=== PATIENT | female | born 1985 | race Caucasian/White ===

== ENCOUNTER 2024-06-26 21:51 | Inpatient (IN) | payer OTHER, SELFPAY ==
--- NOTE | ~2024-06-26 | US_ITS ---
EXAMINATION: US RETROPERITONEAL LIMITED (RENAL ONLY) CLINICAL INFORMATION: Bilateral, ureteral stone.. COMPARISON: None available. Correlation made with CT abdomen and pelvis 06/26/2024. TECHNIQUE: Real-time imaging of the kidneys. FINDINGS: RIGHT KIDNEY: 11.6 x 5.4 x 5.9 cm (SAG x AP x TRV). The kidney is normal in size, contour, and echogenicity. Renal cortical thickness is normal. Mild pelvic fullness is present. 3 mm mid pole calcification. LEFT KIDNEY: 11.6 x 6.7 x 6.3 cm (SAG x AP x TRV). The kidney is normal in size, contour, and echogenicity. Renal cortical thickness is normal. No calculi or focal parenchymal lesions. No hydronephrosis. US/US renal BI IMPRESSION: 1. Mild right renal pelvic fullness without gross hydronephrosis. 2. 3 mm mid pole calculus right kidney. 3. Normal left kidney.. Electronically signed by: Angel Swan MD 06/28/2024 04:06 PM EDT
--- NOTE | ~2024-06-26 | CT_ITS ---
CLINICAL HISTORY: Fever, RT flank pain, ? pyelo, hx of stones CT abdomen and pelvis with contrast Comparison: None Findings: The lung bases are clear. Hepatomegaly measuring 23.8 cm in the craniocaudal dimension. There is a small accessory splenule. Gallbladder, pancreas, and adrenal glands are within normal limits. 3 mm calculus in the proximal right ureter without hydronephrosis. Right perinephric stranding and areas of parenchymal hypoenhancement consistent with pyelonephritis. Nonobstructing calculus in the lower pole of the left kidney. No bowel obstruction, pneumoperitoneum, or pneumatosis. Normal appendix. Small fat containing umbilical hernia. Urinary bladder is underdistended. Uterus is within normal limits. No acute fracture. IMPRESSION: 1. Right pyelonephritis with 3 mm proximal ureteral calculus. 2. Hepatomegaly measuring 23.8 cm craniocaudal. This document has been electronically signed by: Spencer Godinez MD on 06/27/2024 00:03:32
[2024-06-26 21:57] VITALS: BP 140/77; PULSE 110; RESP 18; TEMP 39.5; O2SAT 98; BMI 40.2
[2024-06-26 22:27] LABS: MANUAL DIFF FLAG NO
[2024-06-26 22:28] LABS: Basophils Percent Auto 0.1 % (0-2); Eosinophils Absolute Auto 0.1 X10*3/uL (0.0-0.4); Eosinophils Percent Auto 0.5 % (0-4); Hematocrit 34.2 % (37.0-47.0); Hemoglobin 11.8 g/dl (12.0-16.0); Imm Gran Abs Auto 0.03 X10*3/uL (0.00-0.03); Imm Gran Pct Auto 0.3 % (0.0-0.4); Lymphocytes Absolute Auto 1.3 X10*3/uL (1.2-4.9); Lymphocytes Percent Auto 13.2 % (20-40); Mean Corpuscular HGB Conc 34.5 g/dl (31.0-35.0); Mean Corpuscular Hemoglobin 29.5 pg (27.0-33.0); Mean Corpuscular Volume 85.5 fL (80.0-98.0); Mean Platelet Volume 8.4 fL (9.4-12.3); Monocytes Absolute Auto 0.8 X10*3/uL (0.1-1.2); Neutrophils Absolute Auto 7.6 x10*3/uL (2.0-8.3); Neutrophils Percent Auto 77.9 % (45-73); Platelet Count 339 X10*3/uL (160-400); Red Cell Distribution Width 12.3 % (11.0-16.0); White Blood Count 9.7 X10*3/uL (4.8-10.8)
[2024-06-26 22:42] LABS: Lactic Acid 1.2 mmol/L (0.5-2.0)
[2024-06-26 22:45] LABS: Alanine Aminotransferase 58 U/L (0-31); Alkaline Phosphatase 78 U/L (39-117); Anion Gap 15 (12-20); Aspartate Amino Transferase 41 U/L (5-31); Bilirubin Total 0.6 mg/dL (0.0-1.0); Blood Urea Nitrogen 9 mg/dL (9-16); Calcium 9.2 mg/dL (8.4-10.2); Carbon Dioxide 21 mmol/L (22-29); Chloride 105 mmol/L (96-108); Creatinine Clr Calc Pharmacy 109.1; Estimated Glomerular Filt Rate > 60; Glucose Random 106 mg/dL (60-115); Potassium 3.7 mmol/L (3.3-5.1); Sodium 137 mmol/L (135-145); Total Protein 7.5 g/dL (6.5-8.0)
[2024-06-26 22:51] LABS: Appearance Urine Clear; Color Urine Yellow; Glucose Urine UA Negative (Negative); Leukocyte Esterase Urine Moderate (2+) (Negative); Nitrite Urine Negative (Negative); PH 5.5 (5.0-9.0); UMIC TRIGGER UACC YES; Urine Blood Large (3+) (Negative); Urine Ketones Negative (Negative); Urine Protein 30 (1+) mg/dL (Neg-Trace)
[2024-06-26 22:53] LABS: UPreg QC Valid YES; Urine Pregnancy NEGATIVE (NEGATIVE)
[2024-06-26 22:56] LABS: Bacteria Urine Trace (None Seen); Hyaline Casts Urine 0-2 /LPF (0-2); RBC Urine >20 /HPF (0-2); UACC Culture Trigger YES; WBC Urine 21-50 /HPF (0-5)
--- NOTE | 2024-06-26 22:56 | ED_ITS ---
HPI - General Adult General Chief complaint: Fever Stated complaint: High Fever, back Pain, Shaking, Nauseous Time Seen by Provider: 06/26/24 22:56 History of Present Illness ED Provider: Stacey NIETO narrative: The patient is a 39-year-old female who says that she has been sick since last Tuesday, 4 days ago. She has had discomfort with urination. She has had fevers. She says she has been sleeping a lot. She has had right-sided flank pain. She has had nausea but no vomiting. No chest pain, cough, or shortness of breath. She has had a decreased appetite. She has a history of kidney stones but she has not had a kidney stone in a long time. She thinks the pain in her right flank might be similar to kidney stone pain. Related Data Allergies Allergy/AdvReac Type Severity Reaction Status Date / Time No Known Allergies Allergy Verified 06/26/24 22:00 [No Known Allergies*] Review of Systems 2 Review of Systems: Yes all other systems are reviewed and are negative [facility] Social History Social History Patient Tobacco Use Status: Never used Tobacco Smoked in Last 30 Days: No Use of substances other than those prescribed or required for medical reasons: No Advance Directives: No Advance Directives Information Provided: No Do you have a plan to hurt others: No Plan Nutrition Risks: No Nutritional Risk Patient : No Physical Exam ED Vital Signs: Vital Signs - 24 hr 06/26/24 21:57 06/26/24 22:58 06/27/24 00:06 Temperature 103.1 F H 103.0 F H 99.8 F Pulse Rate 110 H 107 H 109 H Respiratory Rate 18 15 14 Blood Pressure 140/77 H 135/67 122/53 L Pulse Oximetry 98 99 94 Oxygen Delivery Method Room Air Room Air Room Air 06/27/24 00:39 06/27/24 00:42 06/27/24 00:52 Temperature Pulse Rate 106 H 100 99 Respiratory Rate Blood Pressure 110/56 L 113/58 L 112/54 L Pulse Oximetry Oxygen Delivery Method BMI result Body Mass Index 40.2 Const Other: The patient is a 39-year-old female who was awake and alert and looks somewhat worn out. Her mental status is normal. She looks very tired and weak however. HENMT Other: Face is symmetrical. Mucous membranes moist. Eyes General: appearance normal, both eyes and all related structures Neck Neck: Yes normal visual inspection, Yes full ROM and Yes no JVD Resp Effort & Inspection: normal respiratory effort Auscultation: clear to auscultation bilaterally Cardio Rate: tachycardic Rhythm: regular rhythm Heart sounds: S1 normal heart sound present and S2 normal heart sound present GI Other: The abdomen is soft. No significant abdominal tenderness. Back/Spine/Pelvis Other: There is right-sided CVA percussion tenderness. No left-sided CVA percussion tenderness. Skin Other: Skin is dry and unremarkable Neuro Other: The patient is awake and alert but seems very fatigued. Her mental status seems clear. Cranial nerves are grossly intact. She moves her extremities symmetrically and seems grossly neurologically intact without a focal neurological deficit. Extrem Other: No peripheral edema Medications Administered Discontinued Medications Generic Name Dose Route Start Last Admin Trade Name Freq PRN Reason Stop Dose Admin Ceftriaxone Sodium 2 gm 06/26/24 23:02 06/26/24 23:09 Ceftriaxone Sodium 2 Gm Vial IVPUSH 06/26/24 23:03 2 gm ONCE ONE Administration Sodium Chloride 1,000 mls @ 999 mls/hr 06/26/24 23:15 06/27/24 00:29 Ns IV 06/27/24 00:15 Infused .Q1H1M URMILA Infusion Lactated Ringer's 1,000 mls @ 999 mls/hr 06/26/24 23:45 06/27/24 00:50 Lr IV 06/27/24 00:45 Infused .Q1H1M URMILA Infusion Lactated Ringer's 1,000 mls @ 999 mls/hr 06/27/24 01:00 06/27/24 03:12 Lr IV 06/27/24 02:00 Infused .Q1H1M URMILA Infusion Iohexol 85 ml 06/26/24 23:20 06/26/24 23:21 Iohexol 350 Mg/Ml 100 Ml Infus..Btl IV 06/26/24 23:21 85 ml ONCE ONE Administration Ketorolac Tromethamine 10 mg 06/26/24 23:14 06/26/24 23:21 Ketorolac Tromethamine 15 Mg/Ml Vial IVPUSH 06/26/24 23:15 10 mg ONCE ONE Administration Ketorolac Tromethamine 30 mg 06/27/24 03:15 06/27/24 03:20 Ketorolac Tromethamine 30 Mg/Ml Vial IVPUSH 06/27/24 03:16 30 mg ONCE ONE Administration Ondansetron HCl 4 mg 06/26/24 23:14 06/26/24 23:22 Ondansetron Hcl 4 Mg/2 Ml Vial IVPUSH 06/26/24 23:15 4 mg ONCE ONE Administration Medical Decision Making Medical Decision Making [facility] Narrative: The patient is a 39-year-old female who presents with 3 or 4 days of illness characterized by fever, urinary discomfort, and right flank pain. She has a history of kidney stones. She has right-sided CVA percussion tenderness on exam. Her presentation is suggestive of right-sided pyelonephritis. A CT of the abdomen and pelvis shows findings of right-sided pyelonephritis and also a right proximal ureteral obstructive kidney stone. She was given 2 g of IV ceftriaxone and IV fluids. I contacted the on-call urologist who will see the patient in the morning. The patient will be admitted to the hospitalist service. Lab Data 06/27/24 05:12 06/27/24 05:12 Labs: Lab Results 06/26/24 06/26/24 Range/Units 22:21 22:45 WBC 9.7 (4.8-10.8) X10*3/uL RBC 4.00 L (4.20-5.50) X10*6/uL Hgb 11.8 L (12.0-16.0) g/dl Hct 34.2 L (37.0-47.0) % MCV 85.5 (80.0-98.0) fL MCH 29.5 (27.0-33.0) pg MCHC 34.5 (31.0-35.0) g/dl RDW 12.3 (11.0-16.0) % Plt Count 339 (160-400) X10*3/uL MPV 8.4 L (9.4-12.3) fL Immature Gran % (Auto) 0.3 (0.0-0.4) % Neut % (Auto) 77.9 H (45-73) % Lymph % (Auto) 13.2 L (20-40) % [place] % (Auto) 8.0 (2-11) % Eos % (Auto) 0.5 (0-4) % Baso % (Auto) 0.1 (0-2) % Lymph # (Auto) 1.3 (1.2-4.9) X10*3/uL [place] # (Auto) 0.8 (0.1-1.2) X10*3/uL Eos # (Auto) 0.1 (0.0-0.4) X10*3/uL Baso # (Auto) 0.0 (0.0-0.2) X10*3/uL Abs Immat Gran (auto) 0.03 (0.00-0.03) X10*3/uL Absolute Neuts (auto) 7.6 (2.0-8.3) x10*3/uL Absolute Nucleated RBC 0.000 (0.0-0.012) X10*3/uL Nucleated RBC % (auto) 0.0 (0.0-0.2) /100WBC Sodium 137 (135-145) mmol/L Potassium 3.7 (3.3-5.1) mmol/L Chloride 105 (96-108) mmol/L Carbon Dioxide 21 L (22-29) mmol/L Anion Gap 15 (12-20) BUN 9 (9-16) mg/dL Creatinine 0.78 (0.5-1.4) mg/dL Estim Creat Clear Calc 109.1 Estimated GFR > 60 Random Glucose 106 (60-115) mg/dL Lactic Acid 1.2 (0.5-2.0) mmol/L Calcium 9.2 (8.4-10.2) mg/dL Total Bilirubin 0.6 (0.0-1.0) mg/dL AST 41 H (5-31) U/L ALT 58 H (0-31) U/L Alkaline Phosphatase 78 (39-117) U/L C-Reactive Protein 23.93 H (< or = 0.50) mg/dL Total Protein 7.5 (6.5-8.0) g/dL Albumin 4.0 (3.5-5.0) g/dL Urine Color Yellow Urine Appearance Clear Urine pH 5.5 (5.0-9.0) Ur Specific [place] 1.020 (1.005-1.025) Urine Protein 30 (1+) H (Neg-Trace) mg/dL Urine Glucose (UA) Negative (Negative) mg/dL Urine Ketones Negative (Negative) mg/dL Urine Blood Large (3+) H (Negative) Urine Nitrite Negative (Negative) Ur Leukocyte Esterase Moderate (2+) H (Negative) Urine RBC >20 H (0-2) /HPF Urine WBC 21-50 H (0-5) /HPF Ur Squamous Epith Cells 3-5 (0-2) /HPF Urine Bacteria Trace (None Seen) Hyaline Casts 0-2 (0-2) /LPF Urine Test NEGATIVE (NEGATIVE) Critical Care Time Critical Care Time Critical Care Time: Yes Total Critical Care Time: 35 Attestation: The patient was critically ill with a high probability of imminent or life- threatening deterioration. ?I spent greater than 30 minutes of discontinuous time evaluating the patient, delivering critical care at the bedside, discussing evaluating data with consultants. ?Critical care time does not include time spent performing separately billable procedures or teaching. ?Time spent performing critical care with 35 minutes. Discharge Plan Discharge Clinical Impression: Pyelonephritis of right kidney, Calculus of proximal right ureter Patient Disposition: Admitted As Inpatient
[2024-06-26 22:58] VITALS: BP 135/67; PULSE 107; RESP 15; TEMP 39.4; O2SAT 99
[2024-06-26] MEDS: cefTRIAXone sodium 2 GM VIAL IVPUSH (23:09)
--- NOTE | 2024-06-26 23:16 | PC.NURSE ---
this rn assumed care of pt, pt noted to be febrile and tachycardic. called to bedside. sepsis alert called at 2306. 20g placed in left ac, antibiotics administered, pt taken to ct at this time.
[2024-06-26 23:19] LABS: C Reactive Protein 23.93 mg/dL (< or = 0.50)
[2024-06-26] MEDS: Ketorolac Tromethamine 15 MG/ML VIAL 10 MG IVPUSH (23:21)
[2024-06-26] MEDS: iohexoL 350 MG/ML 100 ML INFUS..BTL 85 ML IV (23:21)
[2024-06-26] MEDS: ondansetron HCL 4 MG/2 ML VIAL IVPUSH (23:22)
[2024-06-26] MEDS: 0.9 % Sodium Chloride 1,000 ML 999 ML IV (23:22)
[2024-06-26] MEDS: Lactated Ringers 1,000 ML 999 ML IV (23:45)
[2024-06-27] VITALS (19 sets, daily range): BP systolic 96–143; BP diastolic 48–66; PULSE 82–110; RESP 14–20; TEMP 36.9–39.4; O2SAT 93–98; BMI 40.2
--- NOTE | 2024-06-27 00:31 | PC.NURSE ---
pt ambulatory to bathroom with steady gait, fluids continue to monitor at this time. pt reports she is feeling better at this time.
--- NOTE | 2024-06-27 00:59 | P.HPHOSP_ITS ---
History of Present Illness Date of Service: 06/27/24 Chief Complaint: Fever This has a 39-year-old female with no pertinent past medical history and not on prescription medications who presents to the emergency department for evaluation of fevers and right-sided flank pain. Patient states her symptoms started 4 days prior to presentation. She has been having fevers every day without any relief. Also complains of urinary urgency with change in color and odor of urine. Patient states she has not had UTI for a long time. Patient also started to have right-sided flank pain on the day of presentation. Patient has been tired and sleeping a lot. Admits poor appetite. Does have a history of kidney stones. No chest pain, palpitations, changes in bowel habits. In the emergency department, patient was found to be septic and imaging with right-sided pyelonephritis with 3 mm proximal ureteral calculus. UA with 21-50 WBC. Urology consulted from the ER who requested admission to hospital medicine team and will evaluate the patient in a.m. Review of Systems 2 Constitutional: Constitutional: Reports fatigue, Reports lethargy, Reports malaise and Reports weakness Cardiovascular: Cardiovascular: Reports no additional cardiovascular complaints Respiratory: Respiratory: Reports no additional respiratory complaints Gastrointestinal: Gastrointestinal: Reports abdominal pain Genitourinary: Genitourinary: Reports urinary urgency Neurologic: Reports weakness Endocrine: Endocrine: Reports fatigue PMFSH Pertinent family history: No family history of early CAD Social History Advance Directives: No Advance Directives Information Provided: No Do you have a plan to hurt others: No Plan Meds Allergies Allergy/AdvReac Type Severity Reaction Status Date / Time No Known Allergies Allergy Verified 06/26/24 22:00 [No Known Allergies*] Active Medications: Current Medications Lactated Ringer's (Lr) 1,000 mls @ 999 mls/hr IV .Q1H1M URMILA Stop: 06/27/24 02:00 Physical Exam 2 Vital Signs and Narrative: Vital Signs: Last Vital Signs Temp 99.8 F 06/27/24 00:06 Pulse 109 H 06/27/24 00:06 Resp 14 06/27/24 00:06 BP 122/53 L 06/27/24 00:06 Pulse Ox 94 06/27/24 00:06 O2 Del Method Room Air 06/27/24 00:06 BMI result Body Mass Index 40.2 Middle-aged female lying in bed in no distress Neck supple, no JVD Regular rate and rhythm, S1-S2 heard Regular breath sounds bilaterally, no wheezing or crackles appreciated Abdomen with right CVA tenderness, no guarding Patient is awake, alert and oriented to self, place, time and person ; no focal motor deficit Psych: Normal mood No pedal edema Results Labs 06/26/24 22:21 06/26/24 22:21 Labs: Laboratory Results - last 24 hr 06/26/24 06/26/24 22:21 22:45 MCV 85.5 MCH 29.5 MCHC 34.5 RDW 12.3 Plt Count 339 MPV 8.4 L Immature Gran % (Auto) 0.3 Neut % (Auto) 77.9 H Lymph % (Auto) 13.2 L [place] % (Auto) 8.0 Eos % (Auto) 0.5 Baso % (Auto) 0.1 Lymph # (Auto) 1.3 [place] # (Auto) 0.8 Eos # (Auto) 0.1 Baso # (Auto) 0.0 Abs Immat Gran (auto) 0.03 Absolute Neuts (auto) 7.6 Absolute Nucleated RBC 0.000 Nucleated RBC % (auto) 0.0 Anion Gap 15 Estim Creat Clear Calc 109.1 Estimated GFR > 60 Random Glucose 106 Lactic Acid 1.2 Calcium 9.2 Total Bilirubin 0.6 AST 41 H ALT 58 H Alkaline Phosphatase 78 C-Reactive Protein 23.93 H Total Protein 7.5 Albumin 4.0 Urine Color Yellow Urine Appearance Clear Urine pH 5.5 Ur Specific [place] 1.020 Urine Protein 30 (1+) H Urine Glucose (UA) Negative Urine Ketones Negative Urine Blood Large (3+) H Urine Nitrite Negative Ur Leukocyte Esterase Moderate (2+) H Urine RBC >20 H Urine WBC 21-50 H Ur Squamous Epith Cells 3-5 Urine Bacteria Trace Hyaline Casts 0-2 Urine Test NEGATIVE Assessment and Plan (1) Sepsis: Status: Acute (2) Pyelonephritis of right kidney: Status: Acute (3) Calculus of proximal right ureter: Status: Acute Plan This has a 39-year-old female with no pertinent past medical history and not on prescription medications who presents to the emergency department for evaluation of fevers and right-sided flank pain. #. Sepsis due to acute right pyelonephritis: Will admit patient with IV ceftriaxone. Resuscitated with IV crystalloids. Lactic acid and blood culture obtained. Follow urine culture. Imaging with 3 mm proximal ureteral calculus. Urology consulted from the ER, appreciate assistance DVT prophylaxis: None. Low risk. Patient is ambulatory Full code Admit as inpatient and will require two night minimum hospital stay for IV antibiotics (as above), which is not possible in a lesser acute setting. Quality Stroke Does the patient have a stroke diagnosis?: No VTE Prior VTE?: No VTE Risk Level:: Medical - low VTE Device Contraindication: Treatment Not Indicated VTE Drug Contraindication: Treatment Not Indicated
[2024-06-27] MEDS: Lactated Ringers 1,000 ML 999 ML IV (01:18)
[2024-06-27] MEDS: Ketorolac Tromethamine 30 MG/ML VIAL IVPUSH (03:20)
--- NOTE | 2024-06-27 03:23 | PC.NURSE ---
pt returned from bathroom at this time, reporting 8/10 abdominal pain. provider aware, pt medicated per apr.
[2024-06-27 06:00] LABS: MANUAL DIFF FLAG NO
[2024-06-27 06:04] LABS: Basophils Percent Auto 0.1 % (0-2); Eosinophils Percent Auto 0.4 % (0-4); Hematocrit 31.7 % (37.0-47.0); Imm Gran Abs Auto 0.02 X10*3/uL (0.00-0.03); Imm Gran Pct Auto 0.2 % (0.0-0.4); Lymphocytes Absolute Auto 1.3 X10*3/uL (1.2-4.9); Lymphocytes Percent Auto 15.6 % (20-40); Mean Corpuscular HGB Conc 34.7 g/dl (31.0-35.0); Mean Corpuscular Volume 86.4 fL (80.0-98.0); Mean Platelet Volume 9.1 fL (9.4-12.3); Monocytes Percent Auto 11.5 % (2-11); Neutrophils Percent Auto 72.2 % (45-73); Platelet Count 325 X10*3/uL (160-400); Red Blood Count 3.67 X10*6/uL (4.20-5.50); Red Cell Distribution Width 12.4 % (11.0-16.0); White Blood Count 8.3 X10*3/uL (4.8-10.8)
[2024-06-27 06:23] LABS: Anion Gap 11 (12-20); Blood Urea Nitrogen 7 mg/dL (9-16); Calcium 8.2 mg/dL (8.4-10.2); Carbon Dioxide 20 mmol/L (22-29); Chloride 111 mmol/L (96-108); Estimated Glomerular Filt Rate > 60; Glucose Random 100 mg/dL (60-115); Potassium 3.3 mmol/L (3.3-5.1); Sodium 139 mmol/L (135-145)
[2024-06-27] MEDS: HYDROmorphone HCl 0.5 MG/0.5 ML SYRINGE IVPUSH (07:53)
[2024-06-27] MEDS: 0.9 % Sodium Chloride Flush 3 ML SYRINGE IVFLUSH ×2 (07:55→22:03)
--- NOTE | 2024-06-27 07:58 | P.CNUR_ITS ---
History of Present Illness Consult details Consult date: 06/27/24 Narrative: CC: right proximal ureteric stone 39-year-old female. No prior history of medical stones. Presents through emergency department for evaluation of fevers and right-sided flank pain 4 days of progressive pain Urinary urgency with similar to UTI Creatinine 0.7, WBC 8.3. UA moderate leuk esterase Imaging - CT 3 mm calculus in the proximal right ureter without hydronephrosis. Right perinephric stranding and areas of parenchymal hypoenhancement consistent with pyelonephritis. Nonobstructing calculus in the lower pole of the left kidney. Admit medicine, 24 hours antibiotics, will reassess for stent placement Review of Systems 2 Constitutional: Constitutional: Reports as per HPI and Reports no additional constitutional complaints Cardiovascular: Cardiovascular: Reports as per HPI and Reports no additional cardiovascular complaints Respiratory: Respiratory: Reports as per HPI and Reports no additional respiratory complaints Gastrointestinal: Gastrointestinal: Reports as per HPI and Reports no additional gastrointestinal complaints Genitourinary: Genitourinary: Reports as per HPI Musculoskeletal: Musculoskeletal: Reports no additional musculoskeletal complaints and Reports as per HPI Neurologic: Reports system reviewed and no additional complaints, except as documented and Reports as per HPI COUNTS INCLUDE 234 BEDS AT THE [facility] Social History Social History Patient Tobacco Use Status: Never used Tobacco Smoked in Last 30 Days: No Use of substances other than those prescribed or required for medical reasons: No Advance Directives: No Advance Directives Information Provided: No Do you have a plan to hurt others: No Plan Nutrition Risks: No Nutritional Risk Patient : No Meds Allergies Allergy/AdvReac Type Severity Reaction Status Date / Time No Known Allergies Allergy Verified 06/26/24 22:00 [No Known Allergies*] Active Medications: Current Medications Acetaminophen (Acetaminophen 325 Mg Tablet) 650 mg PO Q6H PRN PRN Reason: Pain, Mild 1-3,fever,headache Calcium Carbonate (Calcium Carbonate 750 Mg Tab.Chew) 750 mg PO Q4H PRN PRN Reason: Heartburn Ceftriaxone Sodium (Ceftriaxone Sodium 2 Gm Vial) 2 gm IVPUSH Q24H URMILA Hydromorphone HCl (Hydromorphone Hcl 0.5 Mg/0.5 Ml Syringe) 0.5 mg IVPUSH Q3H PRN; Protocol PRN Reason: Pain, Severe (Pain Scale 7-10) Last Admin: 05/21/25 07:53 Dose: 0.5 mg Magnesium Hydroxide (Milk Of Magnesia 30 Ml Oral.Susp) 30 ml PO DAILY PRN PRN Reason: Constipation Melatonin (Melatonin 3 Mg Tablet) 6 mg PO BEDTIME PRN PRN Reason: Insomnia Ondansetron HCl (Ondansetron Hcl 4 Mg/2 Ml Vial) 4 mg IVPUSH Q8H PRN PRN Reason: Nausea and Vomiting Sodium Chloride (0.9 % Sodium Chloride Flush 3 Ml Syringe) 3 ml IVFLUSH QSHIFT URMILA Last Admin: 06/27/24 07:55 Dose: 3 ml Physical Exam 2 Vital Signs: Vital Signs: Last Vital Signs Temp 98.5 F 06/27/24 05:36 Pulse 110 H 06/27/24 05:36 Resp 16 06/27/24 07:53 BP 106/56 L 06/27/24 05:36 Pulse Ox 93 06/27/24 05:36 O2 Del Method Room Air 06/27/24 05:36 BMI result Body Mass Index 40.2 Const: General: cooperative, healthy appearing, comfortable and no acute distress Orientation/consciousness: patient oriented x3 HEENT: Face and sinus: Yes normal facial exam Mouth: moist mucous membranes Neck: Neck: Yes normal visual inspection, Yes full ROM and Yes trachea midline Chest: Chest palpation & inspection: normal inspection of the chest Resp: Effort & Inspection: normal respiratory effort, able to speak in complete sentences and no respiratory distress GI: Inspection: Yes normal to inspection Back/Spine/Pelvis: Cervical Spine: normal cervical lordosis Thoracic/Lumbar Spine: thoracic and lumbar spine normal to inspection Skin: General skin exam: no rashes or lesions noted Neuro: General: patient oriented x3, tone normal and moves all extremities Extrem: General: Yes normal to inspection and Yes capillary refill normal Results Labs 06/27/24 05:12 06/27/24 05:12 Labs: Abnormal lab results 06/26/24 06/26/24 06/27/24 Range/Units 22:21 22:45 05:12 RBC 4.00 L 3.67 L (4.20-5.50) X10*6/uL Hgb 11.8 L 11.0 L (12.0-16.0) g/dl Hct 34.2 L 31.7 L (37.0-47.0) % MPV 8.4 L 9.1 L (9.4-12.3) fL Neut % (Auto) 77.9 H (45-73) % Lymph % (Auto) 13.2 L 15.6 L (20-40) % [place] % (Auto) 11.5 H (2-11) % Chloride 111 H (96-108) mmol/L Carbon Dioxide 21 L 20 L (22-29) mmol/L Anion Gap 11 L (12-20) BUN 7 L (9-16) mg/dL Calcium 8.2 L D (8.4-10.2) mg/dL AST 41 H (5-31) U/L ALT 58 H (0-31) U/L C-Reactive Protein 23.93 H (< or = 0.50) mg/dL Urine Protein 30 (1+) H (Neg-Trace) mg/dL Urine Blood Large (3+) H (Negative) Ur Leukocyte Esterase Moderate (2+) H (Negative) Urine RBC >20 H (0-2) /HPF Urine WBC 21-50 H (0-5) /HPF Short CBC 06/26/24 06/27/24 Range/Units 22:21 05:12 WBC 9.7 8.3 (4.8-10.8) X10*3/uL Hgb 11.8 L 11.0 L (12.0-16.0) g/dl Hct 34.2 L 31.7 L (37.0-47.0) % Plt Count 339 325 (160-400) X10*3/uL BMP 06/26/24 06/27/24 22:21 05:12 Sodium 137 139 Potassium 3.7 3.3 Chloride 105 111 H Carbon Dioxide 21 L 20 L BUN 9 7 L Creatinine 0.78 0.67 Calcium 9.2 8.2 L D Liver Function 06/26/24 Range/Units 22:21 Total Bilirubin 0.6 (0.0-1.0) mg/dL AST 41 H (5-31) U/L ALT 58 H (0-31) U/L Alkaline Phosphatase 78 (39-117) U/L Albumin 4.0 (3.5-5.0) g/dL Urine 06/26/24 Range/Units 22:45 Urine Color Yellow Urine Appearance Clear Urine pH 5.5 (5.0-9.0) Ur Specific [place] 1.020 (1.005-1.025) Urine Protein 30 (1+) H (Neg-Trace) mg/dL Urine Glucose (UA) Negative (Negative) mg/dL Urine Test NEGATIVE (NEGATIVE) All other labs normal. Assessment and Plan (1) Calculus of proximal right ureter: Status: Acute Plan Admit with IV antibiotics Reassess 24 hours for stent placement Procedures Date of Service Date of Service: 06/27/24
[2024-06-27] MEDS: Acetaminophen 325 MG TABLET 650 MG PO ×3 (09:22→22:03)
--- NOTE | 2024-06-27 10:55 | PHA.MEDREC ---
Addendum entered by Mick Waite RP 06/27/24 10:58: Reviewed by [facility] Original Note: Pharmacy Consult ? Medication Reconciliation Pharmacy has completed the medication reconciliation. Spoke with patient to confirm. She also uses Dayquil and Nighquil as needed but has not used recently.
--- NOTE | 2024-06-27 11:59 | PC.NURSE ---
Pt. placed in OF 5, report received. Taken over care at this time.
--- NOTE | 2024-06-27 13:02 | P.PNIM_ITS ---
Subjective Subjective Date of Service: 06/27/24 Interval History: flank pain Physical Exam 2 Vital Signs: Vital Signs: Last Vital Signs Temp 98.5 F 06/27/24 05:36 Pulse 110 H 06/27/24 05:36 Resp 16 06/27/24 07:53 BP 106/56 L 06/27/24 05:36 Pulse Ox 93 06/27/24 05:36 O2 Del Method Room Air 06/27/24 05:36 BMI result Body Mass Index 40.2 General: AO X 3, no acute distress Resp: CTA bilateral, no accessory muscles used CVS: S1,S2,RRR GI: soft, non tender, non distended Neuro: motor grossly intact, alert Psych: appropriate affect, appropriate insight Objective Data Active Medications Acetaminophen (Acetaminophen 325 Mg Tablet) 650 mg PO Q6H PRN PRN Reason: Pain, Mild 1-3,fever,headache Last Admin: 06/27/24 09:22 Dose: 650 mg Documented By: KERRIE Calcium Carbonate (Calcium Carbonate 750 Mg Tab.Chew) 750 mg PO Q4H PRN PRN Reason: Heartburn Ceftriaxone Sodium (Ceftriaxone Sodium 2 Gm Vial) 2 gm IVPUSH Q24H URMILA Hydromorphone HCl (Hydromorphone Hcl 0.5 Mg/0.5 Ml Syringe) 0.5 mg IVPUSH Q3H PRN; Protocol PRN Reason: Pain, Severe (Pain Scale 7-10) Last Admin: 06/27/24 07:53 Dose: 0.5 mg Documented By: KERRIE Magnesium Hydroxide (Milk Of Magnesia 30 Ml Oral.Susp) 30 ml PO DAILY PRN PRN Reason: Constipation Melatonin (Melatonin 3 Mg Tablet) 6 mg PO BEDTIME PRN PRN Reason: Insomnia Ondansetron HCl (Ondansetron Hcl 4 Mg/2 Ml Vial) 4 mg IVPUSH Q8H PRN PRN Reason: Nausea and Vomiting Sodium Chloride (0.9 % Sodium Chloride Flush 3 Ml Syringe) 3 ml IVFLUSH QSHIFT [facility] Last Admin: 06/27/24 07:55 Dose: 3 ml Documented By: KERRIE Labs 06/27/24 05:12 06/27/24 05:12 Labs: Laboratory Results - last 24 hr 06/26/24 06/26/24 06/27/24 22:21 22:45 05:12 MCV 85.5 86.4 MCH 29.5 30.0 MCHC 34.5 34.7 RDW 12.3 12.4 Plt Count 339 325 MPV 8.4 L 9.1 L Immature Gran % (Auto) 0.3 0.2 Neut % (Auto) 77.9 H 72.2 Lymph % (Auto) 13.2 L 15.6 L [place] % (Auto) 8.0 11.5 H Eos % (Auto) 0.5 0.4 Baso % (Auto) 0.1 0.1 Lymph # (Auto) 1.3 1.3 [place] # (Auto) 0.8 1.0 Eos # (Auto) 0.1 0.0 Baso # (Auto) 0.0 0.0 Abs Immat Gran (auto) 0.03 0.02 Absolute Neuts (auto) 7.6 6.0 Absolute Nucleated RBC 0.000 0.000 Nucleated RBC % (auto) 0.0 0.0 Anion Gap 15 11 L Estim Creat Clear Calc 109.1 127.0 Estimated GFR > 60 > 60 Random Glucose 106 100 Lactic Acid 1.2 Calcium 9.2 8.2 L D Total Bilirubin 0.6 AST 41 H ALT 58 H Alkaline Phosphatase 78 C-Reactive Protein 23.93 H Total Protein 7.5 Albumin 4.0 Urine Color Yellow Urine Appearance Clear Urine pH 5.5 Ur Specific [place] 1.020 Urine Protein 30 (1+) H Urine Glucose (UA) Negative Urine Ketones Negative Urine Blood Large (3+) H Urine Nitrite Negative Ur Leukocyte Esterase Moderate (2+) H Urine RBC >20 H Urine WBC 21-50 H Ur Squamous Epith Cells 3-5 Urine Bacteria Trace Hyaline Casts 0-2 Urine Test NEGATIVE Assessment and Plan (1) Calculus of proximal right ureter: Status: Acute Plan 39F PMH right flank pain and fever sepsis due to acute pyelonephritis due to non obstructing stone rocephin, cultures urology following, no cysto for now low risk dvt - ambulation full code reason for continued hospitalization:septic Quality Stroke Does the patient have a stroke diagnosis?: No VTE Prior VTE?: No VTE Risk Level:: Medical - low VTE Device Contraindication: Treatment Not Indicated VTE Drug Contraindication: Treatment Not Indicated
--- NOTE | 2024-06-27 13:39 | PC.NURSE ---
Reached out to Admit MD Echavarria, to inform about pain medication for breakthrough pain and inform them on critical value for blood culture x 1 of gram negative rods. Awaiting response.
--- NOTE | 2024-06-27 13:42 | MHC.CM.PN ---
pt lives with and children pt is independent and working pt dc plan is [facility]
[2024-06-27] MEDS: oxyCODONE HCl Immed Release 5 MG TABLET PO ×2 (13:56→20:16)
--- NOTE | 2024-06-27 13:56 | PC.NURSE ---
Pt. c/o pain and therefore was given pain medication Oxycodone for pain, even though it was given outside of the parameters in pain scale (Pt. pain was a 7, and parameters for Oxycodone was a 6). Pt. previously informed RN that she did not want IV pain medications and all that was available was IV Dilaudid. RN then reached out to provider to order something for breakthrough pain. MD Frey was tiger texted and notified for pain medication for breakthrough. Therefore, medication was given at this time.
[2024-06-27] MEDS: ondansetron HCL 4 MG/2 ML VIAL IVPUSH (14:39)
--- NOTE | 2024-06-27 14:43 | MHC.EDTECH ---
while obtaining vitals, pt has a fever reading at 103.0 oral, slightly hypotensive 118/59, tachycardic at 110, and stating 87% on RA. RN was made aware of all vitals, pt was placed on 2L of O2 now staing 95%
--- NOTE | 2024-06-27 16:43 | MHC.EDTECH ---
this tech rechecked vitals, pt no longer has a fever now measuring 99.3 oral, BP still soft 98/48, pt no longer tachy is now 88. RN aware of all vitals
--- NOTE | 2024-06-27 18:20 | MHC.EDTECH ---
pt set up with necessary supplies to take a shower independently
--- NOTE | 2024-06-27 18:21 | MHC.EDTECH ---
pt ate 100% of dinner tray
[2024-06-27] MEDS: cefTRIAXone sodium 2 GM VIAL IVPUSH (20:16)
[2024-06-28] MEDS: oxyCODONE HCl Immed Release 5 MG TABLET PO ×2 (03:06→08:21)
[2024-06-28 06:59] LABS: Hematocrit 31.1 % (37.0-47.0); Hemoglobin 10.8 g/dl (12.0-16.0); Mean Corpuscular HGB Conc 34.7 g/dl (31.0-35.0); Mean Corpuscular Hemoglobin 29.5 pg (27.0-33.0); Mean Platelet Volume 8.5 fL (9.4-12.3); Platelet Count 335 X10*3/uL (160-400); Red Blood Count 3.66 X10*6/uL (4.20-5.50); Red Cell Distribution Width 12.5 % (11.0-16.0); White Blood Count 11.1 X10*3/uL (4.8-10.8)
[2024-06-28 07:21] LABS: Anion Gap 14 (12-20); Blood Urea Nitrogen 7 mg/dL (9-16); Calcium 8.8 mg/dL (8.4-10.2); Carbon Dioxide 24 mmol/L (22-29); Chloride 105 mmol/L (96-108); Creatinine Clr Calc Pharmacy 130.9; Estimated Glomerular Filt Rate > 60; Glucose Random 94 mg/dL (60-115); Potassium 3.4 mmol/L (3.3-5.1); Sodium 140 mmol/L (135-145)
[2024-06-28] MEDS: Acetaminophen 325 MG TABLET 650 MG PO ×2 (07:34→17:02)
[2024-06-28 07:53] VITALS: BP 118/56; PULSE 88; RESP 16; TEMP 37.2; O2SAT 93
--- NOTE | 2024-06-28 08:52 | P.CDIM_ITS ---
PROVIDER RESPONSE TEXT: To clarify, the appropriate diagnosis supported by the clinical indicators: Morbid obesity QUERY TEXT: PHYSICIAN'S DOCUMENTATION REQUEST Date of Query: 06/28/2024 08:05 AM EDT Patient Name: Fiorella Amanda Admit Date: 06/27/2024 Dear iK Echavarria MD, A review of the medical record indicates additional documentation may be needed. Please review below and update the documentation accordingly. Clinical Indicators: Height: 5ft 2in Weight: 99.8kg BMI: 40.2 Other Clinical Notes Supporting Significance of the BMI: Nursing notes Height and Weight: Extreme obe sity class III If possible, please provide an associated diagnosis related to the abnormal BMI, such as: Obesity Due to excess calories Morbid obesity Obesity Due to other cause Specify the other cause Other (explain) Clinically unable to determine (explain) Thank you, Naomie Gomez, CCS, CDIS Use of terms such as suspected, likely, concern for, or probable (associated with a specific diagnosi s that is being evaluated, monitored, or treated as if it exists) are acceptable and can be coded in the inpatient se tting, when documented at the time of discharge. Please use your independent medical judgment in providing your response. THIS QUERY IS PART OF THE PERMANENT MEDICAL RECORD
--- NOTE | 2024-06-28 09:01 | HO.PM.IMPN ---
Subjective Subjective Date of Service: 06/28/24 Interval History: still with pain Physical Exam Vital Signs: Vital Signs: Last Vital Signs Temp 99.0 F 06/28/24 07:53 Pulse 88 06/28/24 07:53 Resp 16 06/28/24 07:53 BP 118/56 L 06/28/24 07:53 Pulse Ox 93 06/28/24 07:53 O2 Del Method Room Air 06/28/24 07:53 O2 Flow Rate 2 06/27/24 14:42 BMI result Body Mass Index 40.2 General: AO X 3, no acute distress Resp: CTA bilateral, no accessory muscles used CVS: S1,S2,RRR GI: soft, non tender, non distended Neuro: motor grossly intact, alert Psych: appropriate affect, appropriate insight Objective Data Active Medications Acetaminophen (Acetaminophen 325 Mg Tablet) 650 mg PO Q6H PRN PRN Reason: Pain, Mild 1-3,fever,headache Last Admin: 06/28/24 07:34 Dose: 650 mg Documented By: EMILY Calcium Carbonate (Calcium Carbonate 750 Mg Tab.Chew) 750 mg PO Q4H PRN PRN Reason: Heartburn Ceftriaxone Sodium (Ceftriaxone Sodium 2 Gm Vial) 2 gm IVPUSH Q24H URMILA Last Admin: 06/27/24 20:16 Dose: 2 gm Documented By: KWAME Hydromorphone HCl (Hydromorphone Hcl 0.5 Mg/0.5 Ml Syringe) 0.5 mg IVPUSH Q3H PRN; Protocol PRN Reason: Pain, Severe (Pain Scale 7-10) Last Admin: 06/27/24 07:53 Dose: 0.5 mg Documented By: KERRIE Magnesium Hydroxide (Milk Of Magnesia 30 Ml Oral.Susp) 30 ml PO DAILY PRN PRN Reason: Constipation Melatonin (Melatonin 3 Mg Tablet) 6 mg PO BEDTIME PRN PRN Reason: Insomnia Ondansetron HCl (Ondansetron Hcl 4 Mg/2 Ml Vial) 4 mg IVPUSH Q8H PRN PRN Reason: Nausea and Vomiting Last Admin: 06/27/24 14:39 Dose: 4 mg Documented By: KWAME Oxycodone HCl (Oxycodone Hcl Immed Release 5 Mg Tablet) 5 mg PO Q4H PRN PRN Reason: Pain, Moderate(Pain Scale 4-6) Last Admin: 06/28/24 08:21 Dose: 5 mg Documented By: EMILY Sodium Chloride (0.9 % Sodium Chloride Flush 3 Ml Syringe) 3 ml IVFLUSH [facility] Last Admin: 06/27/24 22:03 Dose: 3 ml Documented By: CARMELITA Labs 06/28/24 06:43 06/28/24 06:43 Labs: Laboratory Results - last 24 hr 06/28/24 06:43 MCV 85.0 MCH 29.5 MCHC 34.7 RDW 12.5 Plt Count 335 MPV 8.5 L Absolute Nucleated RBC 0.000 Nucleated RBC % (auto) 0.0 Anion Gap 14 Estim Creat Clear Calc 130.9 Estimated GFR > 60 Random Glucose 94 Calcium 8.8 D Microbiology Microbiology Results: Microbiology 06/26/24 22:28 Blood Culture - Preliminary Blood - Venous Gram negative edyta 06/26/24 22:21 Blood Culture - Preliminary Blood - Venous No growth after 24 hours. Assessment and Plan (1) Calculus of proximal right ureter: Status: Acute Plan 39F PMH right flank pain and fever sepsis due to acute pyelonephritis due to non obstructing stone complicated by gnr bacteremia rocephin, cultures, ivf urology following, morbid obesity weight loss recommended low risk dvt - ambulation full code reason for continued hospitalization:cultures, pain Quality Stroke Does the patient have a stroke diagnosis?: No VTE Prior VTE?: No VTE Risk Level:: Medical - low VTE Device Contraindication: Treatment Not Indicated VTE Drug Contraindication: Treatment Not Indicated
[2024-06-28] MEDS: Lactated Ringers 1,000 ML 100 ML IVCONT (09:34)
[2024-06-28] MEDS: 0.9 % Sodium Chloride Flush 3 ML SYRINGE IVFLUSH (09:34)
[2024-06-28 15:03] VITALS: BP 135/64; PULSE 92; RESP 14; TEMP 37.1; O2SAT 94
--- NOTE | 2024-06-28 17:55 | PM.DS ---
DS: Providers Provider Date of Service: 06/28/24 Date of admission: 06/27/24 00:59 Date of discharge: 06/28/24 Primary care physician: [facility] Consults: 06/27/24 01:30 Consult to Urology Routine Consulting Provider: [facility] [place] [facility] Reason for consultation: right pyelonephritis Discharging clinician: Nic Cassidy DS: Diagnosis Discharge Diagnosis (1) Calculus of proximal right ureter: Status: Acute (2) Sepsis: Status: Acute DS: Summary Hospital Course Hospital Course: Admitted with IV antibiotics Urine culture shows Gram-negative rods Confirmed with blood culture Responding well to IV and switch to orals Repeat ultrasound showed resolution of hydronephrosis Status at Discharge Functional status at discharge: independent ambulation Overall status at discharge: patient is back to baseline Time Attestation Total time managing care of this patient today: 20 mintues. Discharge Coordination Time (in mins): 10 Quality: Safe Use of Opioids Does Pt have an Active Cancer Diagnosis on the Problem List?: No Quality: Stroke Does the patient have a stroke diagnosis?: No Physical Exam Vital Signs: Vital Signs: Last Vital Signs Temp 98.8 F 06/28/24 15:03 Pulse 92 06/28/24 15:03 Resp 14 06/28/24 15:03 BP 135/64 06/28/24 15:03 Pulse Ox 94 06/28/24 15:03 O2 Del Method Room Air 06/28/24 15:03 O2 Flow Rate 2 06/27/24 14:42 BMI result Body Mass Index 40.2 DS: Data Data Completed and Pending Labs on day of discharge: Laboratory Results - last 24 hr 06/28/24 06:43 WBC 11.1 H RBC 3.66 L Hgb 10.8 L Hct 31.1 L MCV 85.0 MCH 29.5 MCHC 34.7 RDW 12.5 Plt Count 335 MPV 8.5 L Absolute Nucleated RBC 0.000 Nucleated RBC % (auto) 0.0 Sodium 140 Potassium 3.4 Chloride 105 Carbon Dioxide 24 Anion Gap 14 BUN 7 L Creatinine 0.65 Estim Creat Clear Calc 130.9 Estimated GFR > 60 Random Glucose 94 Calcium 8.8 D Preliminary micro results at discharge 06/26/24 Unknown Urine Culture - Preliminary Urine clean catch - Clean Catch Midstream Gram negative edyta 06/26/24 22:28 Blood Culture - Preliminary Blood - Venous Gram negative edyta 06/26/24 22:21 Blood Culture - Preliminary Blood - Venous No growth after 24 hours. Discharge Plan Discharge Anticipated Discharge Date/Time: 06/28/24 17:49 Patient Disposition: Home, Self-Care Discharge Diagnosis: ureteric stone Referrals: [place],[facility] [Primary Care Provider] - 1 Week Discharge Medications: New tamsulosin 0.4 mg capsule 0.4 mg PO BEDTIME 14 Days Qty: 14 0RF phenazopyridine [Pyridium] 100 mg tablet 100 mg PO TID PRN (Reason: Spasm) 4 Days Qty: 12 0RF naproxen 500 mg tablet 500 mg PO BID PRN (Reason: pain) 7 Days Qty: 14 0RF sulfamethoxazole-trimethoprim [Bactrim DS] 800-160 mg tablet 1 tab PO BID 14 Days Qty: 28 0RF Continued acetaminophen 500 mg Tablet 1,000 mg PO Q6H PRN (Reason: Pain) Discontinued ibuprofen 200 mg Tablet 600 mg PO Q8H PRN (Reason: Pain) Discharge Orders: Discharge Order (Routine); Ordered 06/28/24 Ordered By: Nic Cassidy Diet: Advance to usual diet Activity on Discharge: As tolerated Stand Alone Forms: Patient Portal Discharge page Print Language: Bruneian Care Plan Goals: stone Health Concerns: stone Plan of Treatment: stone Assessment: stone
--- NOTE | 2024-06-28 18:02 | PM.DS ---
DS: Providers Provider Date of Service: 06/28/24 Date of admission: 06/27/24 00:59 Date of discharge: 06/28/24 Primary care physician: [facility] Consults: 06/27/24 01:30 Consult to Urology Routine Consulting Provider: [facility] [place] [facility] Reason for consultation: right pyelonephritis DS: Diagnosis Discharge Diagnosis (1) Calculus of proximal right ureter: Status: Acute (2) Sepsis: Status: Acute DS: Summary Hospital Course Hospital Course: from initial hpi: 39-year-old female with no pertinent past medical history and not on prescription medications who presents to the emergency department for evaluation of fevers and right-sided flank pain. Patient states her symptoms started 4 days prior to presentation. She has been having fevers every day without any relief. Also complains of urinary urgency with change in color and odor of urine. Patient states she has not had UTI for a long time. Patient also started to have right-sided flank pain on the day of presentation. Patient has been tired and sleeping a lot. Admits poor appetite. Does have a history of kidney stones. No chest pain, palpitations, changes in bowel habits. In the emergency department, patient was found to be septic and imaging with right-sided pyelonephritis with 3 mm proximal ureteral calculus. UA with 21-50 WBC. Urology consulted from the ER who requested admission to hospital medicine team and will evaluate the patient in a.m. hospital course: Patient was admitted for sepsis due to acute pyelonephritis due to stone complicated by Gram-negative edyta bacteremia. Was treated with ceftriaxone, IV fluids. Sepsis and pain resolved. Renal ultrasound did not show any hydronephrosis, was seen by Urology recommended discharged home with 14 days of Bactrim, Flomax. Antibiotics to be changed if needed based on culture results. For morbid obesity weight loss is recommended. Time Attestation Discharge Coordination Time (in mins): 32 Quality: Safe Use of Opioids Does Pt have an Active Cancer Diagnosis on the Problem List?: No Quality: Stroke Does the patient have a stroke diagnosis?: No Physical Exam Vital Signs: Vital Signs: Last Vital Signs Temp 98.8 F 06/28/24 15:03 Pulse 92 06/28/24 15:03 Resp 14 06/28/24 15:03 BP 135/64 06/28/24 15:03 Pulse Ox 94 06/28/24 15:03 O2 Del Method Room Air 06/28/24 15:03 O2 Flow Rate 2 06/27/24 14:42 BMI result Body Mass Index 40.2 General: AO X 3, no acute distress Resp: CTA bilateral, no accessory muscles used CVS: S1,S2,RRR GI: soft, non tender, non distended Neuro: motor grossly intact, alert Psych: appropriate affect, appropriate insight DS: Data Data Completed and Pending Labs on day of discharge: Laboratory Results - last 24 hr 06/28/24 06:43 WBC 11.1 H RBC 3.66 L Hgb 10.8 L Hct 31.1 L MCV 85.0 MCH 29.5 MCHC 34.7 RDW 12.5 Plt Count 335 MPV 8.5 L Absolute Nucleated RBC 0.000 Nucleated RBC % (auto) 0.0 Sodium 140 Potassium 3.4 Chloride 105 Carbon Dioxide 24 Anion Gap 14 BUN 7 L Creatinine 0.65 Estim Creat Clear Calc 130.9 Estimated GFR > 60 Random Glucose 94 Calcium 8.8 D Preliminary micro results at discharge 06/26/24 Unknown Urine Culture - Preliminary Urine clean catch - Clean Catch Midstream Gram negative edyta 06/26/24 22:28 Blood Culture - Preliminary Blood - Venous Gram negative edyta 06/26/24 22:21 Blood Culture - Preliminary Blood - Venous No growth after 24 hours. Discharge Plan Discharge Anticipated Discharge Date/Time: 06/28/24 17:49 Patient Disposition: Home, Self-Care Discharge Diagnosis: ureteric stone Referrals: [place] [Primary Care Provider] - 1 Week Discharge Medications: New tamsulosin 0.4 mg capsule 0.4 mg PO BEDTIME 14 Days Qty: 14 0RF phenazopyridine [Pyridium] 100 mg tablet 100 mg PO TID PRN (Reason: Spasm) 4 Days Qty: 12 0RF naproxen 500 mg tablet 500 mg PO BID PRN (Reason: pain) 7 Days Qty: 14 0RF sulfamethoxazole-trimethoprim [Bactrim DS] 800-160 mg tablet 1 tab PO BID 14 Days Qty: 28 0RF Continued acetaminophen 500 mg Tablet 1,000 mg PO Q6H PRN (Reason: Pain) Discontinued ibuprofen 200 mg Tablet 600 mg PO Q8H PRN (Reason: Pain) Discharge Orders: Discharge Order (Routine); Ordered 06/28/24 Ordered By: Nic Cassidy Diet: Advance to usual diet Activity on Discharge: As tolerated Stand Alone Forms: Patient Portal Discharge page Print Language: Peruvian Care Plan Goals: stone Health Concerns: stone Plan of Treatment: stone Assessment: stone
[2024-06-28 18:38] VITALS: BP 136/75; PULSE 90; RESP 16; TEMP 36.4; O2SAT 96
== END 2024-06-28 19:08 | disposition home or self-care (01) | DRG 872 ==
LOC: HO.ED 06-27 01:00 → HO.EDOVER 06-27 01:04 → HO.S3 06-27 19:21
PROVIDERS: Admitting Provider Student in an Organized Health Care Education/Training Program; Emergency Provider Emergency Medicine; Visit Provider Internal Medicine
DX: A41.9 Sepsis, unspecified organism (principal); N20.1 Calculus of ureter; N10 Acute pyelonephritis; Z68.41 Body mass index [BMI] 40.0-44.9, adult; E66.01 Morbid (severe) obesity due to excess calories; Z71.3 Dietary counseling and surveillance
CPT/HCPCS: 36415; 74177; 76775; 80048; 80053; 81001; 81025; 83605; 85025; 85027; 86140; 87040; 87077; 87086; 87088; 87186; 87205; 99285; J0696; J1171; J1885; J2405; J7120; Q9967

== ENCOUNTER → 2024-06-26 23:05 | Outpatient (BNV) | payer OTHER, SELFPAY | PROVIDERS: Emergency Provider Emergency Medicine; Visit Provider Radiology Diagnostic Radiology | DX: N10 Acute pyelonephritis (principal); N20.0 Calculus of kidney; R16.0 Hepatomegaly, not elsewhere classified | CPT/HCPCS: 74177 ==

== ENCOUNTER 2024-06-27 00:59 | Outpatient (BNV) | payer OTHER, SELFPAY | END 2024-06-28 15:43 | PROVIDERS: Admitting Provider Student in an Organized Health Care Education/Training Program; Emergency Provider Emergency Medicine; Visit Provider Radiology Diagnostic Radiology | DX: N20.0 Calculus of kidney (principal) | CPT/HCPCS: 76775 ==

== ENCOUNTER → 2024-06-27 00:59 | Outpatient (BNV) | payer OTHER, SELFPAY | PROVIDERS: Admitting Provider Student in an Organized Health Care Education/Training Program; Emergency Provider Emergency Medicine; Visit Provider Student in an Organized Health Care Education/Training Program | DX: A41.9 Sepsis, unspecified organism (principal); N12 Tubulo-interstitial nephritis, not specified as acute or chronic; N20.1 Calculus of ureter | CPT/HCPCS: 99222; 99239; 99499 ==

== ENCOUNTER → 2024-06-27 00:59 | Outpatient (BNV) | payer OTHER, SELFPAY | PROVIDERS: Admitting Provider Student in an Organized Health Care Education/Training Program; Emergency Provider Emergency Medicine; Visit Provider Urology | DX: N20.1 Calculus of ureter (principal); A41.9 Sepsis, unspecified organism | CPT/HCPCS: 99238 ==

== ENCOUNTER 2024-08-06 15:37 | Outpatient (AMB) | payer OTHER, SELFPAY ==
--- NOTE | 2024-08-06 15:39 | MHC.OFFVIS ---
Intake Visit Reasons: 6w/US Intake Note: Patient presents today for 6w/US Renal US 06/28 Urology Medication:None Blood Thinner:None Antibiotic Allergies:None Allergies No Known Allergies (No Known Allergies*) Allergy (Verified 08/06/24 15:44) HPI Comments Details: 08/06/24 History of Present Illness - The patient is a 39-year-old female presenting with follow-up care for kidney stones and pyelonephritis. - The patient was hospitalized for pyelonephritis and diagnosed with a proximal ureteral stone and nonobstructing kidney stone left kidney on a CT scan dated 06/27/24. - She was treated with IV antibiotics and discharged on tamsulosin, reporting significant improvement with no fever or pain post-treatment. - An ultrasound before discharge on 06/28/24 showed mild right renal pelvic fullness without gross hydronephrosis, with right nonobstructing renal stone. - The patient has a history of kidney stones from [id number], treated with lithotripsy and states she completed a 24-hour urine collection at that time. Results - CT scan on 06/27/24: Proximal right ureteral stone and nonobstructing kidney stone left kidney - Ultrasound on 06/28/24: Mild right renal pelvic fullness without gross hydronephrosis, with right nonobstructing renal stone. Discussion Notes I discussed with the patient the importance of follow-up care for her kidney stones. We reviewed the need for a follow-up ultrasound to monitor the kidneys and the potential for small stones to pass naturally. I explained the 24-hour urine collection process to help prevent future stones and emphasized the importance of hydration and dietary modifications, including reducing sodium intake and being mindful of oxalate-rich foods. The patient was advised to contact our office if she experiences any symptoms such as blood in the urine or pain. FU with EM Zimmerman to review 24 hr urine and renal US. [facility] Social History Household Members: Family Housing: House Do you presently have visiting nurse or other home services: Yes Patient Tobacco Use Status: Never used Tobacco service: No Review of Systems Const All systems reviewed & are unremarkable except as noted in HPI and below Reports no additional complaints Eyes Reports no additional complaints ENT Reports no additional complaints Card Reports no additional complaints Resp Reports no additional complaints GI Reports no additional complaints Reports as per HPI Musc Reports no additional complaints Skin/Breast Reports system reviewed and no additional complaints, except as documented Neuro Reports no additional complaints Psych Reports no additional complaints Endo Reports no additional complaints Darius/Lymph Reports no additional complaints Aller/Immun Reports no additional complaints Results AMB Urinalysis, Automated UA Leukoctes 0 Delroy/uL Last Edit by Crystal Mckay on 08/06/24 16:31 UA Nitrite Negative Last Edit by Crystal Mckay on 08/06/24 16:31 UA Urobilinogen 3.5 mg/dL Last Edit by Crystal Mckay on 08/06/24 16:31 UA Protein 1 mg/dL Last Edit by Crystal Mckay on 08/06/24 16:31 UA pH 5.0 Last Edit by Crystal Mckay on 08/06/24 16:31 UA Blood 200 [place]/uL Last Edit by Crystal Mckay on 08/06/24 16:31 UA Specific [place] 1.025 Last Edit by Crystal Mckay on 08/06/24 16:31 UA Ketone Positive Last Edit by Crystal Mckay on 08/06/24 16:31 UA Bilirubin 0 mg/dL Last Edit by Crystal Mckay on 08/06/24 16:31 UA Glucose 0 mg/dL Last Edit by Crystal Mckay on 08/06/24 16:31 Assessment & Plan Assessment & Plan (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 - Perform a 24-hour urine collection to assess stone risk factors. - Encourage hydration with 48 to 64 ounces of fluids daily, adding lemon for citrate. - Advise on a low sodium diet and awareness of oxalate-rich foods. - Arrange a telehealth follow-up with the nurse practitioner for result review. - Advise the patient to report any symptoms such as hematuria or pain. Orders: Orders US retroperitoneal comp 8 Weeks N20.0 - Calculus of kidney, N20.1 - Calculus of ureter AMB Urinalysis Automated Today Z13.9 - Encounter for screening, unspecified Medications: Discontinued phenazopyridine (Pyridium) Discontinued Reason: Patient no longer taking 100 mg PO TID 4 days PRN 12 tabs 0RF Spasm naproxen Discontinued Reason: Patient no longer taking 500 mg PO BID 7 days PRN 14 tabs 0RF pain tamsulosin Discontinued Reason: Patient no longer taking 0.4 mg PO BEDTIME 14 days 14 caps 0RF sulfamethoxazole-trimethoprim 800-160 mg (Bactrim DS) Discontinued Reason: Patient no longer taking 1 tab PO BID 14 days 28 tabs 0RF Patient Instructions: The patient had an opportunity to ask questions regarding treatment plan. The patient expressed understanding and agreement with the above treatment plan. The patient is aware they should contact our office by phone for worsening of their current condition or the appearance of new symptoms. Compliance is encouraged with any medications and followup testing that is ordered. It is a privilege to be allowed the opportunity to participate in the urologic care of your patient. If you have any questions or concerns regarding treatment for the above conditions please do not hesitate to contact me. The office telephone contact is [phone]. This note is constructed in part using voice recognition software. While every effort has been made to ensure accuracy senior java architect errors may have been included. Yours sincerely, Julieta Lawson MD Coding Diagnoses Calcium nephrolithiasis N20.0 Bilateral kidney stones N20.0 Pyelonephritis of right kidney N12 Calculus of proximal right ureter N20.1
--- OUTSIDE RECORDS SUMMARY | 2024-08-06 15:41 | XMS_ITS | Clinical Summary ---
Author Organization [employer] [facility] Address [address] [place] [address] Care Team Providers Care Electric Motor Repair Supervisor Name Role Phone Cherelle Kaplan MD Primary Care Pr ovider Allergies Active Allergy Reactions Criticality Noted Date Comments Cat Dander 12/21/2022 Other 12/21/2022 Seasonal allergies Medications busPIRone (BUSPAR) 7.5 mg tablet Take 1 Tablet by mouth 3 times daily. 4 Active trazodone HCl (TRAZODONE ORAL) Take 1 Tablet by mouth at bedtime. Active predniSONE (DELTASONE) 10 mg tablet 6 tabs x 3 days, then 4 tabs x 3 days, then 3 tabs x 3 days, then 2 tabs x 3 days, then 1 tab x 3 days, then 1/2 tab daily until finished 4 Active oxyCODONE-acetami nophen (PERCOCET) 5-325 mg per tablet PLEASE SEE ATTACHED FOR DETAILED DIRECTIONS 4 Active gabapentin (NEURONTIN) 100 mg capsule TAKE 1 CAPSULE BY MOUTH 3 TIMES A DAY 4 Active diclofenac (VOLTAREN) 75 mg EC tablet Take 1 Tablet by mouth 2 times daily as needed (pain). 4 Active citalopram hydrobromide (CITALOPRAM ORAL) Take 1 Tablet by mouth daily. Active Active Problems Problem Noted Date Diagnosed Date Asthma 02/13/2024 Overview (02/13/2024): as child Lumbar herniated disc 09/22/2018 Allergic rhinitis 08/23/2015 Insomnia 08/08/2014 Obesity 07/18/2014 Anxiety and depression 08/29/2012 Immunizations Name Administration Dates Next Due H1N1 Inj Preservative Free 12/09/2008 Influenza trivalent, 0.5mL, preservative free (Fluarix; FluLaval; Fluzone) ages 6mo and older (Afluria) 3 years and older 11/11/2008,12/22/2007 Moderna SARS-CoV-2 COVID-19, mRNA, LNP-S, preservative free 06/06/2020,05/09/2020 PPD Test 02/02/2011,12/11/2008 Pneumococcal conjugate 20 va lent (Prevnar 20, PCV 20) 2mo and older 12/21/2022 Tdap Tetanus diptheria acell ular pertussis (Boostrix; Adacel) 7yo and older 01/28/2011 Surgical History Surgery Date Site/Laterality Comments OTHER SURGICAL HISTORY PROCEDURE: [facility] ANES LITHOTRP XTRCORP SHOCK WAVE W/WATER BATH BACK SURGERY 07/2017 PROCEDURE: HISTORICAL BACK SURGERY; COMMENT: Benny. Right sided microdiscectomy Medical History Medical History Date Comments Asthma DX:Asthma; COMME NT: as child Family History Medical History Relation Name Comments Other: heart condition Father enlar ged heart Lung cancer Maternal Grandmother Ovarian cancer Maternal Grandmother ? edouard ast Stroke Maternal Grandmother Hypertension Mother Other: anxiety Mother Other: smoker Mother Blindness Neg Hx Breast cancer Neg Hx Cataracts Neg Hx Colon cancer Neg Hx Glaucoma Neg Hx Macular degeneration Neg Hx Strabismus Neg Hx Relation Name Status Comments Father Maternal Grandmother Mother Social History Tobacco Use Types Packs/Day Years Used Date Smoking Tobacco: Former Cigarettes Q uit: 08/07/2014 Smokeless Tobacco: Never Alcohol Use Standard Drinks/Week Comments Yes 0 (1 standard drink = 0.6 oz pur e alcohol) Comments Unknown Sex and Gender Information Value Date Recorded Sex Assigned at Not on file Legal Sex Female 7:28 AM EST Gender Identity Not on file Sexual Orientation Not on file Obstetrics History Last Filed Vital Signs Vital Sign Reading Time Taken Comments Blood Pressure 130/88 08/16/2023 10:01 AM EDT Pulse 78 08/16/2023 10:01 AM EDT Temperature - - Respiratory Rate - - Oxygen Saturation - - Inhaled Oxygen Concentration - - Weight 99.8 kg (220 lb) 08/16/2023 10:01 AM EDT Height 157.5 cm (5' 2 ) 06/08/2023 7:47 AM EDT Body Mass Index 40.24 06/08/2023 7:47 AM EDT Plan of Treatment Health Maintenance Due Date Last Done Comments Hepatitis B Vaccines (1 of 3 - 19+ 3-dose series) 2006 Cervical Cancer Screening: P ap Smear 12/08/2018 12/09/2015, 12/09/2015 DTaP,Tdap,and Td Vaccines (2 - Td or Tdap) 01/28/2021 01/28/2011 Depression Screening 01/16/2022 Hepatitis C Screening 01/16/2022 Social Influencers of Health Screening 01/16/2022 COVID-19 Vaccine ( - 2023-2 5 season) 2023 06/06/2020, 05/09/2020 Influenza Vaccine (Season Ended) 2024 12/09/2008, 11/11/2008, 12/22/2007 Cholesterol Screening (Lipid Panel) 12/22/2027 12/21/2022 HIV Screening Completed 11/06/2008 Pneumococcal Vaccine: Pediatrics (0 to 5 Years) and At-Risk Patients (6 to 64 Years) Completed 12/21/2022 HIB Vaccines Aged Out No longer eligi ble based on patient's age to complete this topic HPV Vaccines Aged Out No longer eligi ble based on patient's age to complete this topic Hepatitis A Vaccines Aged Out No long er eligible based on patient's age to complete this topic IPV Vaccines Aged Out No longer eligi ble based on patient's age to complete this topic MMR Vaccines Aged Out No longer eligi ble based on patient's age to complete this topic Meningococcal ACWY Vaccine Aged Out N o longer eligible based on patient's age to complete this topic Meningococcal B Vaccine Aged Out No l onger eligible based on patient's age to complete this topic RSV Immunization Patients Under 20 months Aged Out No longer eligible b ased on patient's age to complete this topic Varicella Vaccines Aged Out No longer eligible based on patient's age to complete this topic Procedures Procedure Name Priority Date/Time Associated Diagnosis Comments LIPID PANEL Routine 12/21/2022 HM HPV Routine 12/09/2015 HIV SCREENING Routine 11/06/2008 from Last 3 Months or Most Recently Relevant to Health Maintenance Results * (ABNORMAL) Lipid panel (12/21/2022) [facility] LDL/HDL Ratio 5(A) 0 - 4 Triglycerides 148 0 - 150 mg/dL Cholesterol 216(A) 0 - 200 mg/dL HDL 41 >=40 mg/dL LDL Cholesterol 146(A) 0 - 100 mg/dL Blood Venous blood specimen / Unknown Historical Provider LAB BLOOD ORDERABLES Pastora l Result * Cervical Cancer Screening: HPV (12/09/2015) [facility] Cervical Cancer Screening: HPV Abstracted ,negative Historical Provider HEALTH MAINTENANCE Final Result * HIV Screening (11/06/2008) [facility] HIV Screening abstracted Historical Provider HEALTH MAINTENANCE Final Result from Last 3 Months or Most Recently Relevant to Health Maintenance Care Teams Electric Motor Repair Supervisor Relationship Specialty Start Date End Date Cherelle Kaplan MD PCP - General 07/13/22
== END 2024-08-06 16:04 | disposition home or self-care (01) ==
LOC: HO.HUSH 15:37
PROVIDERS: Visit Provider Urology
DX: Z13.9 Encounter for screening, unspecified (principal)

== ENCOUNTER → 2024-08-06 15:37 | Outpatient (BNVA) | payer OTHER, SELFPAY | PROVIDERS: Visit Provider Urology | DX: N20.0 Calculus of kidney (principal) | CPT/HCPCS: 81003 ==

== ENCOUNTER 2024-11-30 13:50 | Outpatient (REF) | payer OTHER, SELFPAY ==
--- NOTE | ~2024-11-30 | US_ITS ---
EXAMINATION: US RETROPERITONEUM HISTORY: N20.0 - Calculus of kidney TECHNIQUE: Real-time grayscale ultrasound imaging of the kidneys was performed and images were reviewed. COMPARISON: Comparison is made with the prior examination dated 06/28/2024. FINDINGS: Right kidney: The right kidney measures 9.0 x 4.6 x 4.9 cm. Renal parenchymal echotexture and thickness are normal. There are no masses. There is a 4 x 3 x 4 mm nonobstructing calculus in the interpolar region and a 9 x 4 x 6 mm nonobstructing calculus at the lower pole. There is mild pelvic fullness without hydronephrosis. Left Kidney: The left kidney measures 12.1 x 6.5 x 5.1 cm. Renal parenchymal echotexture and thickness are normal. There are no masses. There is a nonobstructing 6 x 3 x 6 mm calculus at the lower pole. There is mild pelvic fullness without hydronephrosis. The urinary bladder is unremarkable. Bilateral ureteral jets are identified. Before voiding, the urinary bladder measured 11.1 x 4.6 x 9.5 cm, for an estimated volume of 254 mL. After voiding, the urinary bladder measured 3.4 x 2.5 x 5.0 cm, for an estimated volume of 22 mL. US/US retroperitoneal comp IMPRESSION: 1. Bilateral nephrolithiasis as described. Mild bilateral renal pelvic fullness without hydronephrosis. 2. Post void bladder residual 22 mL. Electronically signed by: Christopher Hook MD 11/30/2024 02:44 PM EDT
--- OUTSIDE RECORDS SUMMARY | 2024-11-30 15:52 | XMS_ITS | Clinical Summary ---
Author Organization [employer] [facility] Address [address] [place] [address] Care Team Providers Care Nutritionist Public Health Name Role Phone Cehrelle Kaplan MD Primary Care Pr ovider Allergies [...] Obesity 07/18/2014 Anxiety and depression 08/29/2012 Immunizations Immunization Administration Dates Next Due H1N1 Inj Preservative [...] Date Site/Laterality Comments OTHER SURGICAL HISTORY PROCEDURE: DE ANES LITHOTRP XTRCORP SHOCK WAVE W/WATER BATH [...] of 3 - 19+ 3-dose series) 2006 HPV Vaccines (1 - 3-dose SCD M series) 2014 Cervical Cancer Screening: P ap Smear 12/08/2018 12/09/2015, 12/09/2015 DTaP,Tdap,and Td Vaccines (2 - Td or Tdap) 01/28/2021 01/28/2011 Hepatitis C Screening 01/16/2022 Social Influencers of Health Screening 01/16/2022 Depression Screening 02/08/2024 COVID-19 Vaccine (3 - 2024-2 6 season) 2024 06/06/2020, 05/09/2020 Influenza Vaccine (#1) 2024 9, 11/11/2008, 12/22/2007 Cholesterol Screening (Lipid Panel) 12/22/2027 12/21/2022 RSV Immunization Adult Patients (1 - 1-dose 75+ series) 2062 HIV Screening Completed 11/06/2008 Pneumococcal Vaccine: Pediatrics (0 to 5 Years) and At-Risk Patients (6 to 49 Years) Completed 12/21/2022 HIB Vaccines Aged Out [...] Associated Diagnosis Comments LIPID PANEL Routine 12/21/2022 HPV Routine 12/09/2015 HIV SCREENING Routine 11/06/2008 from Last 3 Months or Most Recently Relevant to Health Maintenance Results * (ABNORMAL) Lipid panel (12/21/2022) LDL/HDL Ratio 5(A) 0 - 4 Triglycerides 148 0 - 150 mg/dL Cholesterol 216(A) 0 - 200 mg/dL HDL 41 >=40 mg/dL LDL Cholesterol 146(A) 0 - 100 mg/dL Blood Venous blood specimen / Unknown Historical Provider LAB BLOOD ORDERABLES Pastora l Result * Cervical Cancer Screening: HPV (12/09/2015) Cervical Cancer Screening: HPV Abstracted ,negative Historical Provider HEALTH MAINTENANCE Final Result * HIV Screening (11/06/2008) HIV Screening abstracted Historical Provider HEALTH MAINTENANCE Final Result from Last 3 Months or Most Recently Relevant to Health Maintenance Care Teams Nutritionist Public Health Relationship Specialty Start Date End Date Cherelle Kpalan MD PCP - General 07/13/22
== END 2024-11-30 13:51 | disposition home or self-care (01) ==
LOC: HO.US 13:50
PROVIDERS: Visit Provider Urology
DX: N20.0 Calculus of kidney (principal); N20.1 Calculus of ureter
CPT/HCPCS: 76770

== ENCOUNTER → 2024-11-30 13:51 | Outpatient (BNV) | payer OTHER, SELFPAY | PROVIDERS: Visit Provider Radiology Diagnostic Radiology | DX: N20.0 Calculus of kidney (principal) | CPT/HCPCS: 76770 ==

== ENCOUNTER 2024-12-11 15:04 | Outpatient (AMB) | payer OTHER, SELFPAY ==
--- NOTE | 2024-12-11 16:08 | A.OFFVIS_ITS ---
Intake Visit Reasons: 3m/US/Litholink Allergies No Known Allergies (No Known Allergies*) Allergy (Verified 12/11/24 20:29) Medication List - Last Reconciled 12/11/24 by CINDY Leiva acetaminophen 1,000 mg PO Q6H PRN HPI Comments Details: Fiorella is a very pleasant 39-year-old female patient. She is being followed up on today via video telehealth for her history of nephrolithiasis. In discussion with the patient today she reports having seeked emergency room care services at [facility] for ongoing gallbladder issue she has been experiencing. She reports she was to undergo cholecystectomy however with change in insurance was unable to follow-up with [facility] provider as planned. She denies having had any bothersome urological issues or concerns. She also reports having adjusted her diet over the last 4-6 weeks given her ongoing gallbladder issues. Most recent renal imaging results reviewed with the patient today. 12/01 right kidney with nonobstructing calculi measuring 4 mm and 9 mm. Left kidney with 6 mm nonobstructing calculus. There is mild pelvic fullness without hydronephrosis noted bilaterally. The urinary bladder is unremarkable. Most recent Litholink results reviewed with the patient today 11/01 suboptimal urine volume of 1.6 L. urine calcium is borderline elevated, hypomagnesemia, low pH, hyperuricosuria and high uric acid super saturation. We discussed dietary adjustments to assist with these findings. We also discussed increasing urine volume above 2.5 L. We did discuss increase in stone burden when compared to previous imaging. All questions were answered. She denies urinary urgency, urinary frequency, incontinence, nocturia, hematuria, dysuria, foul smelling urine, changes to urinary stream, flank pain, fever, and or chills. She is happy with her current voiding parameters. Patient discusses her longstanding history of nephrolithiasis requiring lithotripsies as well as ureteroscopy. Patient with most recent hospitalization for pyelonephritis 07/01 at which time she was treated with IV antibiotics and discharged on Flomax. All questions were answered. She otherwise offers no other issues or concerns at this time. [facility] Social History Household Members: Family Housing: House Do you presently have visiting nurse or other home services: Yes Patient Tobacco Use Status: Never used Tobacco service: No Review of Systems Const All systems reviewed & are unremarkable except as noted in HPI and below Physical Exam Const General: cooperative, healthy appearing, comfortable, no acute distress, well developed, alert and awake Resp Effort & Inspection: normal respiratory effort and able to speak in complete sentences Psych Appearance: grossly normal and well kempt Mental Status: mental status grossly normal Speech and movement: Clear speech present Affect: normal affect Attitude: cooperative Thought process: Normal thought process present Thought content: Normal thought content present Insight: Fair insight present (Psych) Judgement: Fair judgement present (Psych) Telehealth Telehealth Telehealth Platform: [employer] Location of provider rendering services: practice address Location of patient: address on file Patient Identification confirmed using: Name, : Yes Telehealth method: video Patient verbally consented to treatment: Yes Patient verbally consented to billing insurance company: Yes Patient informed of any privacy concerns related to visit: Yes Minutes spent on Phone/Video with Pt.: 20 Results Reviewed Results Reviewed: Date of Service: 11/30/24 Procedure(s): US retroperitoneal comp FINDINGS: Right kidney: The right kidney measures 9.0 x 4.6 x 4.9 cm. Renal parenchymal echotexture and thickness are normal. There are no masses. There is a 4 x 3 x 4 mm nonobstructing calculus in the interpolar region and a 9 x 4 x 6 mm nonobstructing calculus at the lower pole. There is mild pelvic fullness without hydronephrosis. Left Kidney: The left kidney measures 12.1 x 6.5 x 5.1 cm. Renal parenchymal echotexture and thickness are normal. There are no masses. There is a nonobstructing 6 x 3 x 6 mm calculus at the lower pole. There is mild pelvic fullness without hydronephrosis. The urinary bladder is unremarkable. Bilateral ureteral jets are identified. Before voiding, the urinary bladder measured 11.1 x 4.6 x 9.5 cm, for an estimated volume of 254 mL. After voiding, the urinary bladder measured 3.4 x 2.5 x 5.0 cm, for an estimated volume of 22 mL. IMPRESSION: 1. Bilateral nephrolithiasis as described. Mild bilateral renal pelvic fullness without hydronephrosis. 2. Post void bladder residual 22 mL. Assessment & Plan Assessment & Plan (1) Calcium nephrolithiasis: Code(s): N20.0 - Calculus of kidney Category: Medical (2) Bilateral kidney stones: Code(s): N20.0 - Calculus of kidney Category: Medical Plan Most recent renal imaging results reviewed with the patient today; as noted above. Recent Litholink results reviewed with the patient today; as noted above. All questions were answered. We discussed dietary modifications to assist with Litholink findings; this was discussed in detail. She currently denies any bothersome urinary issues or concerns. She reports be happy with current voiding parameters. We did discuss increase in stone burden from previous imaging. We discussed further intervention to include further imaging verses surveillance monitoring; risks and benefits of these interventions were discussed. Discussed adding 1 oz of lemon juice to water daily. We discussed the importance of adequate hydration relation to nephrolithiasis as well as overall health and well-being. Will continue with surveillance monitoring at this time per patient request. Will obtain renal ultrasound and KUB in 4-6 months. Follow-up in 4-6 months with imaging; or sooner with any issues, concerns, and or questions. Orders: Orders XR KUB 4 Months N20.0 - Calculus of kidney US renal BI 4 Months N20.0 - Calculus of kidney Coding Level of Care Code Tele Est Pt Level 3 (54157) Diagnoses Calcium nephrolithiasis N20.0 Bilateral kidney stones N20.0
--- OUTSIDE RECORDS SUMMARY | 2024-12-11 18:02 | XMS_ITS ---
Author Name [facility] Organization Unknown Care Team Organization Name Specialty Phone Email Start Date End Da te [facility] Diogo Drake Primary Care [id number]/15/[id number]
--- OUTSIDE RECORDS SUMMARY | 2024-12-11 18:02 | XMS_ITS | Clinical Summary ---
Author Organization [employer] [facility] Address [address] [place] [address] Care Team Providers Care Leather Colorer Name Role Phone Cherelle Kaplan MD Primary [...] Date Site/Laterality Comments OTHER SURGICAL HISTORY PROCEDURE: IN ANES LITHOTRP XTRCORP SHOCK WAVE W/WATER BATH [...] Recently Relevant to Health Maintenance Care Teams Leather Colorer Relationship Specialty Start Date End Date Cherelle Kaplan MD PCP - General 07/13/22
== END 2024-12-11 16:36 | disposition home or self-care (01) ==
LOC: HO.HUSH 15:04
PROVIDERS: Visit Provider Nurse Practitioner Family
DX: N20.0 Calculus of kidney (principal)
CPT/HCPCS: 99213